=== PATIENT | male | born 1940 | race Caucasian/White ===

== ENCOUNTER 2020-12-04 10:43 | Outpatient (CLI) | payer MEDICARE, BC | END 2020-12-04 10:44 | disposition home or self-care (01) | LOC: CSHMRI 10:43 | PROVIDERS: ATTEND Urology | DX: R97.20 Elevated prostate specific antigen [PSA] (principal); Z95.9 Presence of cardiac and vascular implant and graft, unspecified | CPT/HCPCS: 71045; 72197 ==

== ENCOUNTER 2021-11-18 08:43 | Outpatient (CLI) | payer MEDICARE, BC | END 2021-11-18 08:44 | disposition home or self-care (01) | LOC: CSHSPEC 08:43 | PROVIDERS: ATTEND Surgery | DX: M54.16 Radiculopathy, lumbar region (principal); Z95.0 Presence of cardiac pacemaker; M47.816 Spondylosis without myelopathy or radiculopathy, lumbar region; M48.061 Spinal stenosis, lumbar region without neurogenic claudication; D17.79 Benign lipomatous neoplasm of other sites | CPT/HCPCS: 71046; 72110; 72148 ==

== ENCOUNTER 2021-12-29 12:35 | Outpatient (CLI) | payer MEDICARE, BC ==
[2021-12-29] MEDS ORDERED: Magnevist 469MG/ML 20 ML VIAL ONE (15:19)
== END 2021-12-29 12:36 | disposition home or self-care (01) ==
LOC: CSHSPEC 12:35
PROVIDERS: ATTEND Urology
DX: R97.20 Elevated prostate specific antigen [PSA] (principal)
CPT/HCPCS: 72197; A9579

== ENCOUNTER 2021-12-29 12:40 | Outpatient (CLI) | payer MEDICARE, BC | END 2021-12-29 12:41 | disposition home or self-care (01) | LOC: CSHSPEC 12:40 | PROVIDERS: ATTEND Neurological Surgery | DX: M48.02 Spinal stenosis, cervical region (principal); Z95.0 Presence of cardiac pacemaker; M47.812 Spondylosis without myelopathy or radiculopathy, cervical region | CPT/HCPCS: 72050; 72141; 72197; A9579 ==

== ENCOUNTER 2022-12-09 12:26 | Outpatient (CLI) | payer MEDICARE, BC | END 2022-12-09 12:27 | disposition home or self-care (01) | LOC: CSHSPEC 12:26 | PROVIDERS: ATTEND Internal Medicine | DX: M54.41 Lumbago with sciatica, right side (principal); M51.36 Other intervertebral disc degeneration, lumbar region; M48.061 Spinal stenosis, lumbar region without neurogenic claudication | CPT/HCPCS: 72148 ==